=== PATIENT | female | born 1945 | race Caucasian/White ===

== ENCOUNTER 2018-01-11 15:51 | Inpatient (IN) | payer MEDICARE, BC ==
[~2018-01-11] VITALS: Ht 152.4 cm; Wt 77.2 kg
[2018-04-06] MEDS ORDERED: CATAPRES 0.1MG0.1 MG PO (10:22)
[2018-04-06] MEDS ORDERED: ROXICODONE 55 MG/TAB PO (10:23)
[2018-04-06] MEDS ORDERED: COREG12.5 MG PO (10:23)
[2018-04-06] MEDS ORDERED: ZOCOR 20MG20 MG PO (10:23)
[2018-04-06] MEDS ORDERED: NAPROSYN500 MG PO (10:23)
[2018-04-06] MEDS ORDERED: SYNTHROID0.112 MG/T PO (10:23)
[2018-04-06] MEDS ORDERED: NATURAL IRON65 MG PO (10:24)
[2018-04-06] MEDS ORDERED: CELEBREX 200MG200 MG PO (10:24)
[2018-04-06] MEDS ORDERED: EYE DROP ORIGIN15 ML OP (10:25)
[2018-04-06] MEDS ORDERED: STOOL SOFTENER240 M1 PO (10:25)
[2018-04-06] MEDS ORDERED: TYLENOL PM EXTR1 TA1 PO (10:26)
[2018-04-06] MEDS ORDERED: FOLIC ACID 40400 MCG PO (10:26)
[2018-04-07] VITALS (11 sets, daily range): BP systolic 115–176; BP diastolic 46–99; PULSE 55–90; TEMP 97.4–98
[2018-04-07] MEDS ORDERED: TYLENOL 8 HR PO (06:07)
[2018-04-07] MEDS ORDERED: ASPIRIN 81M81 MG/TA2 PO (06:07)
[2018-04-07] MEDS ORDERED: TRIBENZOR 5 MG PO (06:09)
[2018-04-08 00:15] VITALS: BP 154/80; PULSE 90; TEMP 98.1
[2018-04-08 04:44] VITALS: BP 156/71; PULSE 88; TEMP 98
[2018-04-08 07:45] LABS: HEMOGLOBIN 10.2 g/dl (12.5-16.0)
[2018-04-08 07:51] LABS: HEMATOCRIT 31.2 % (37.0-47.0)
[2018-04-08 09:00] VITALS: BP 152/59; PULSE 90; TEMP 98.5
[2018-04-08] MEDS ORDERED: ASPI325T6 PO (12:10)
[2018-04-08 12:38] VITALS: BP 171/70; PULSE 81; TEMP 98.5
== END 2018-04-08 15:15 | disposition home or self-care (01) | DRG 470 ==
LOC: JCC 04-07 05:30
PROVIDERS: Orthopaedic Surgery; Physician Assistant
PROC: 0SRC0J9 Replacement of Right Knee Joint with Synthetic Substitute, Cemented, Open Approach (ICD-10-PCS; principal; 2018-04-07 07:30)
DX: M17.11 Unilateral primary osteoarthritis, right knee (principal); E78.00 Pure hypercholesterolemia, unspecified; I10 Essential (primary) hypertension; G43.909 Migraine, unspecified, not intractable, without status migrainosus
CPT/HCPCS: A9284; C1713; C1776; J0171; J0690; J1100; J1200; J1885; J2250; J2274; J2704; J7121